=== PATIENT | female | born 1970 | race Caucasian/White ===

== ENCOUNTER 2020-08-18 07:48 | Outpatient (REF) | payer OTHER, SELFPAY ==
--- NOTE | ~2020-08-18 | MM_ITS ---
EXAMINATION: MM SCREENING DIGITAL BREAST TOMOSYNTHESIS, BILATERAL CLINICAL INFORMATION: Screening. Asymptomatic. The lifetime risk of breast cancer based on the Tyrer-Cuzick Model is 19%. COMPARISON: Mammography: 06/03/2019, 05/30/2018, 04/08/2017 TECHNIQUE: Digital mammography is performed in craniocaudal and mediolateral oblique views along with computer-aided detection (CAD). Digital breast tomosynthesis is performed in implant-displaced craniocaudal and implant-displaced mediolateral oblique views along with computer-aided detection (CAD). Synthesized 2D images are generated from the tomosynthesis. FINDINGS: There are scattered areas of fibroglandular density (ACR BI-RADS breast composition Category b). There are no significant masses, abnormal calcifications, or other abnormalities. There are bilateral implants. The implant contours are smooth. Again, there is biopsy clip marker posterior inferior 6:30 o'clock left breast. MM/MM tomosynthesis screen imp BI IMPRESSION: No significant changes from prior studies. ASSESSMENT: BI-RADS 2: Benign RECOMMENDATION: Routine annual mammography screening. This patient's information was entered into a reminder system with a target due date for their next mammogram.
== END 2020-08-18 07:49 | disposition home or self-care (01) ==
LOC: HO.MAMMO 07:48
PROVIDERS: PCP Internal Medicine; Visit Provider Internal Medicine
DX: Z12.31 Encounter for screening mammogram for malignant neoplasm of breast (principal)
CPT/HCPCS: 77063; 77067

== ENCOUNTER 2021-06-08 08:57 | Outpatient (REF) | payer OTHER, SELFPAY ==
[2021-06-08 12:13] LABS: Alanine Aminotransferase 19 U/L (0-31); Anion Gap 11 (12-20); Aspartate Amino Transferase 18 U/L (5-31); Blood Urea Nitrogen 15 mg/dL (9-16); Calcium 9.6 mg/dL (8.4-10.2); Carbon Dioxide 27 mmol/L (22-29); Chloride 108 mmol/L (96-108); Cholesterol 187 mg/dL; Estimated Glomerular Filt Rate > 60; Glucose Fasting 109 mg/dL (60-99); HDL Cholesterol 58 mg/dL; LDL Cholesterol Calculated 114 mg/dl; Potassium 4.5 mmol/L (3.3-5.1); Sodium 141 mmol/L (135-145); Triglycerides 77 mg/dL
[2021-06-08 12:22] LABS: Vitamin D 25-OH Total 17.4 ng/mL (>30)
[2021-06-14 19:42] LABS: HPV mRNA E6/E7 rflx Not Detected (Not Detected)
== END 2021-06-08 08:58 | disposition home or self-care (01) ==
LOC: HO.HMGCLDS 08:57
PROVIDERS: PCP Internal Medicine; Visit Provider Internal Medicine
DX: Z00.00 Encounter for general adult medical examination without abnormal findings (principal); Z12.4 Encounter for screening for malignant neoplasm of cervix; Z11.51 Encounter for screening for human papillomavirus (HPV)
CPT/HCPCS: 36415; 80048; 80061; 82306; 84450; 84460; 87624; 88142

== ENCOUNTER 2021-08-24 07:58 | Outpatient (REF) | payer OTHER, SELFPAY ==
--- NOTE | ~2021-08-24 | MM_ITS ---
EXAMINATION: MM SCREENING DIGITAL BREAST TOMOSYNTHESIS, BILATERAL CLINICAL INFORMATION: Screening. Asymptomatic. The lifetime risk of breast cancer based on the Tyrer-Cuzick Model is 10%. COMPARISON: Mammography: 08/18/2020, 06/03/2019, 05/30/2018 TECHNIQUE: Digital mammography is performed in craniocaudal and mediolateral oblique views along with computer-aided detection (CAD). Digital breast tomosynthesis is performed in implant-displaced craniocaudal and implant-displaced mediolateral oblique views along with computer-aided detection (CAD). Synthesized 2D images are generated from the tomosynthesis. FINDINGS: There are scattered areas of fibroglandular density (ACR BI-RADS breast composition Category b). There are no significant masses, abnormal calcifications, or other abnormalities. The implant contours are smooth and similar to prior studies. Parenchymal pattern is similar to prior exams and there is no developing density or architectural abnormality. Biopsy clip marker again present on left central lower breast. No significant changes from prior studies. MM/MM tomosynthesis screen imp BI IMPRESSION: No mammographic evidence of malignancy. ASSESSMENT: BI-RADS 1: Negative RECOMMENDATION: Routine annual mammography screening. This patient's information was entered into a reminder system with a target due date for their next mammogram.
== END 2021-08-24 07:59 | disposition home or self-care (01) ==
LOC: HO.MAMMO 07:58
PROVIDERS: Visit Provider Internal Medicine
DX: Z12.31 Encounter for screening mammogram for malignant neoplasm of breast (principal)
CPT/HCPCS: 77063; 77067

== ENCOUNTER 2022-08-29 07:39 | Outpatient (REF) | payer OTHER, SELFPAY ==
--- NOTE | ~2022-08-29 | MM_ITS ---
EXAMINATION: MM SCREENING DIGITAL BREAST TOMOSYNTHESIS, BILATERAL CLINICAL INFORMATION: Screening. Asymptomatic. The lifetime risk of breast cancer based on the Tyrer-Cuzick Model is 10%. COMPARISON: Mammography: 08/24/2021, 08/18/2020, 06/03/2019 TECHNIQUE: Digital mammography is performed in craniocaudal and mediolateral oblique views along with computer-aided detection (CAD). Digital breast tomosynthesis is performed in implant-displaced craniocaudal and implant-displaced mediolateral oblique views along with computer-aided detection (CAD). Synthesized 2D images are generated from the tomosynthesis. FINDINGS: There are scattered areas of fibroglandular density (ACR BI-RADS breast composition Category b). The implant contours are smooth and similar to prior studies. The parenchymal pattern is similar to prior exams and there is no significant mass, developing density, or architectural abnormality. No abnormal calcifications. Biopsy clip marker again noted on left central 8:00 position. The axilla are unremarkable. No significant changes. MM/MM tomosynthesis screen imp BI IMPRESSION: No mammographic evidence of malignancy. ASSESSMENT: BI-RADS 1: Negative RECOMMENDATION: Routine annual mammography screening. This patient's information was entered into a reminder system with a target due date for their next mammogram.
== END 2022-08-29 07:40 | disposition home or self-care (01) ==
LOC: HO.MAMMO 07:39
PROVIDERS: Visit Provider Internal Medicine
DX: Z12.31 Encounter for screening mammogram for malignant neoplasm of breast (principal)
CPT/HCPCS: 77063; 77067

== ENCOUNTER 2022-11-05 09:12 | Outpatient (REF) | payer OTHER, SELFPAY ==
[2022-11-05 12:22] LABS: Alanine Aminotransferase 16 U/L (0-31); Anion Gap 12 (12-20); Aspartate Amino Transferase 16 U/L (5-31); Blood Urea Nitrogen 15 mg/dL (9-16); Calcium 9.2 mg/dL (8.4-10.2); Carbon Dioxide 26 mmol/L (22-29); Chloride 110 mmol/L (96-108); Cholesterol 179 mg/dL; Estimated Glomerular Filt Rate > 60; Glucose Fasting 99 mg/dL (60-99); HDL Cholesterol 51 mg/dL; LDL Cholesterol Calculated 110 mg/dl; Potassium 4.8 mmol/L (3.3-5.1); Sodium 143 mmol/L (135-145); Triglycerides 92 mg/dL
[2022-11-05 12:38] LABS: Vitamin D 25-OH Total 46.9 ng/mL (>30)
== END 2022-11-05 09:13 | disposition home or self-care (01) ==
LOC: HO.HMGCLDS 09:12
PROVIDERS: PCP Internal Medicine; Visit Provider Internal Medicine
DX: E66.9 Obesity, unspecified (principal); E55.9 Vitamin D deficiency, unspecified
CPT/HCPCS: 36415; 80048; 80061; 82306; 84450; 84460

== ENCOUNTER 2023-04-08 12:13 | Outpatient (AMB) | payer OTHER, SELFPAY ==
--- NOTE | 2023-04-08 12:44 | MHC.PC.OV ---
Vital Signs 04/08/23 12:45 Height 5 ft Weight 188 lb 4 oz BMI 36.8 BP 135/95 H Blood Pressure Location Lt brachial Position Sitting Pulse 72 Pulse Source Pulse Oximeter Pulse Oximetry (%) 94 Oxygen Delivery Method Room Air Intake Visit Reasons: med review Intake Note: pt is here to follow up on her wegovy Allergies Sulfa (Sulfonamide Antibiotics) Allergy (Unknown, Unverified 07/25/23 10:19) hives Medication List - Last Reconciled 04/08/23 by Alee Lackey MD semaglutide (weight loss) 0.5 mg (0.5 mL) subcut QWEEK 1 month Tobacco use date assessed: 04/08/23 Dental Screening Dental Screen Date: 04/08/23 Did you have a dental visit in the last 12 months?: Yes Did you have a dental problem in the last 6 months where you did not have access to dental care?: No Was dental information given to patient?: Patient has dentist HPI med review HPI Details 52-year-old lady with obesity, here today for follow-up regarding weight loss after starting Wegovy 0.25 mg injected weekly, which was started approximately 2 months ago. Patient however had an interruption her dose, as she was unable to get the medication filled from local pharmacies. She eventually was able to get a prescription filled from the [facility]. She has been compliant with following a healthy diet, and has been exercising, has lost approximately 7 lb in 3 months. Patient states medication make it is her not want to eat, has been forcing herself to eat regular meals. Has had brief episodes of abdominal cramping after injectng the medicine which resolved spontaneously after a day. [facility] Medical History (Updated 07/25/23 @ 10:33 by Alee Lackey MD) Impaired fasting glucose Vitamin D deficiency Saline breast implant in situ Anxiety and depression Basal cell carcinoma (BCC) in situ of skin Obesity (BMI 35.0-39.9 without comorbidity) Surgical History History of tonsillectomy History of tubal ligation History of mastopexy Family History Unknown No problems noted. Other Adopted Asperger syndrome Social History Housing: Condominium Patient Tobacco Use Status: Never used Tobacco e-Cigarette/Vaping Use: Never Used Second Hand Smoke Exposure: No service: No Current occupational status: employed Cognitive needs: No Hearing needs: No Vision needs: Yes Questionnaire Thrive Questionnaire Date Thrive assessed: 11/07/22 ADILSON-7 AMB Questionnaire ADILSON-7 Date ADILSON - 7 assessed: 12/04/22 Source: Developed by Drs. Gabe Mcclelland, Adriane Cloud, Lucius Lam and colleagues, with an educational hayder from [employer]. Review of Systems Const Reports no additional complaints Eyes Details: Up-to-date with her eye exam, sees [facility] Denies change in vision ENT Reports no additional complaints and Reports Normal hearing present Card Reports no additional complaints Resp Reports no additional complaints GI Reports no additional complaints Reports no additional complaints Musc Reports as per HPI Neuro Reports no additional complaints, Reports Normal hearing present and Denies Sensory deficit (Neuro) Psych Reports no additional complaints Endo Reports no additional complaints Magdi/Lymph Reports no additional complaints Aller/Immun Reports no additional complaints Physical exam (Primary Care) Vital Signs: Last Vital Signs Pulse 72 04/08/23 12:45 BP 135/95 H 04/08/23 12:45 Pulse Ox 94 04/08/23 12:45 Oxygen Delivery Method Room Air 04/08/23 12:45 BMI result Body Mass Index 36.8 Tobacco/Smoking Status: Tobacco use Status Tobacco use date assessed 04/08/23 04/08/23 12:49 Patient Tobacco Use Status Never used Tobacco 04/08/23 12:49 e-Cigarette/Vaping Use Never Used 04/08/23 12:49 Thrive Assessment: Date of Thrive Assessment Date Thrive assessed 11/07/22 04/08/23 12:49 Const General: no acute distress and alert Nutritional Appearance: obese Orientation/consciousness: patient oriented x3 HENMT Head: Yes normocephalic General nose exam: Normal external nose present Face and sinus: Yes face symmetric Mouth: Normal oral and palatal mucosa present, oropharynx normal and moist mucous membranes Neck Neck: Yes full ROM and Yes no lymphadenopathy Thyroid: Thyroid normal Resp Effort & Inspection: normal respiratory effort and able to speak in complete sentences Auscultation: clear to auscultation bilaterally Cardio Jugular venous distension: no JVD Rate: regular rate Rhythm: regular rhythm Heart sounds: S1 normal heart sound present and S2 normal heart sound present GI Inspection: Yes normal to inspection Palpation (GI): Soft to palpation Auscultation: normal bowel sounds Neuro General: patient oriented x3, gait normal, moves all extremities, no focal motor deficits and CN's II-XI intact bilaterally Cranial nerves: Yes Normal hearing present Cognition (Neuro): normal cognition Gait exam (Neuro): Normal gait present Sensory Exam: No Sensory deficit (Neuro) Office Procedures Flu Questionnaire Does the patient have a severe egg allergy?: No Does the patient have severe life threatening allergies?: No Does the patient have a fever or illness today?: No Has the patient ever had Guillain-Baker Syndrome?: No Has the patient ever had any past reaction to a flu shot?: No Immunizations flu vacc [id number] 6mos up(PF) 60 mcg(15 mcgx4)/0.5 mL IM syringe Performing Provider: Alee Lackey MD [facility] Administered by: Larissa Joyner CMA on 04/08/23 13:34 Dose Route Admin Location Dispensed Lot Number Expiration Date NDC Procedure Manager 0.5 mL IM Right Deltoid 0.5 mL [id number] 12/15/23 [id number] [employer] VIS Given Date VIS Provided VIS Publication Date 04/08/23 Single Vaccine 21 Eligibility Eligibility Date Funding Source Not [facility] Eligible 04/08/23 Private Assessment and Plan Assessment & Plan (1) Obesity (BMI 35.0-39.9 without comorbidity): Code(s): E66.9 - Obesity, unspecified Plan: Continue with adhering to healthy eating habits and regular exercise, increased Wegovy dose to 0.5 mg , to be injected weekly, will see her back for follow-up in 6 weeks (2) Needs flu shot: Code(s): Z23 - Encounter for immunization Plan: Flu vaccine given today Orders: Orders Glucose Fasting 05/17/23 E66.9 - Obesity, unspecified Influenza [id number] Immunization 04/08/23 Z23 - Encounter for immunization Liver Panel 05/17/23 E66.9 - Obesity, unspecified Medications: Changed From Wegovy administer weeks 1 through 4 of therapy 0.25 mg (0.5 mL) subcut QWEEK 2 mL 0RF NS E66.9 - Obesity, unspecified To semaglutide (weight loss) administer weeks 1 through 4 of therapy 0.5 mg (0.5 mL) subcut QWEEK 2 mL 1RF 1 month E66.9 - Obesity, unspecified Coding Level of Care Code Est Pt Level 3 (56223) Diagnoses Obesity (BMI 35.0-39.9 without comorbidity) E66.9 Needs flu shot Z23
[2023-04-08 12:45] VITALS: BP 135/95; PULSE 72; O2SAT 94; BMI 36.8
== END 2023-04-08 14:09 | disposition home or self-care (01) ==
PROVIDERS: PCP Internal Medicine; Visit Provider Internal Medicine
DX: E66.9 Obesity, unspecified (principal); Z23 Encounter for immunization
CPT/HCPCS: 90471; 90686; 99213; 99499

== ENCOUNTER 2023-05-20 07:33 | Outpatient (REF) | payer OTHER, SELFPAY ==
[2023-05-20 12:12] LABS: Alanine Aminotransferase 18 U/L (0-31); Alkaline Phosphatase 90 U/L (39-117); Aspartate Amino Transferase 18 U/L (5-31); Bilirubin Direct 0.2 mg/dL (0.0-0.5); Bilirubin Total 0.5 mg/dL (0.0-1.0); Glucose Fasting 100 mg/dL (60-99); Total Protein 6.8 g/dL (6.5-8.0)
== END 2023-05-20 07:34 | disposition home or self-care (01) ==
LOC: HO.HMGCLDS 07:33
PROVIDERS: PCP Internal Medicine; Visit Provider Internal Medicine
DX: E66.9 Obesity, unspecified (principal)
CPT/HCPCS: 36415; 80076; 82947

== ENCOUNTER 2023-05-23 08:50 | Outpatient (AMB) | payer OTHER, SELFPAY ==
[2023-05-23 08:57] VITALS: BP 130/88; PULSE 69; O2SAT 97; BMI 36.0
--- NOTE | 2023-05-23 08:57 | MHC.PC.OV ---
Vital Signs 05/23/23 08:57 Height 5 ft Weight 184 lb 2 oz BMI 36.0 BP 130/88 Blood Pressure Location Lt brachial Position Sitting Pulse 69 Pulse Source Pulse Oximeter Pulse Oximetry (%) 97 Oxygen Delivery Method Room Air Intake Visit Reasons: regarding weight after increasing dose of wegovy Intake Note: Pt is here to have her weight checked after increasing her dose on wegovy Allergies Sulfa (Sulfonamide Antibiotics) Allergy (Unknown, Unverified 05/23/23 09:19) hives Medication List - Last Reconciled 05/23/23 by Alee Lackey MD semaglutide (weight loss) 0.5 mg (0.5 mL) subcut QWEEK 1 month Tobacco use date assessed: 05/23/23 Dental Screening Dental Screen Date: 05/23/23 Did you have a dental visit in the last 12 months?: Yes Did you have a dental problem in the last 6 months where you did not have access to dental care?: No Was dental information given to patient?: Patient has dentist HPI regarding weight after increasing dose of wegovy HPI Details 53-year-old lady with obesity, here today for follow-up after increasing her dose of Wegovy from 0.25 to 0.5 mg injected weekly. She initially started with a weight of 195 lb in February 2023, and then went down to 188 lb after month on the 0.25 mg dose per. She has lost only for lb since increasing the dose to 0.5 mg, but has not had any adverse effects from the medication and has been combining it with adhering to a healthier diet and getting regular exercise. Latest fasting labs done showed fasting glucose at 100 mg/dL and liver profile is within normal limits. [facility] Medical History Vitamin D deficiency Saline breast implant in situ Anxiety and depression Basal cell carcinoma (BCC) in situ of skin Obesity (BMI 35.0-39.9 without comorbidity) Surgical History History of tonsillectomy History of tubal ligation History of mastopexy Family History Unknown No problems noted. Other Adopted Asperger syndrome Social History Housing: Condominium Patient Tobacco Use Status: Never used Tobacco e-Cigarette/Vaping Use: Never Used Second Hand Smoke Exposure: No service: No Current occupational status: employed Cognitive needs: No Hearing needs: No Vision needs: Yes Questionnaire PHQ-9 Over the last 2 weeks, how often have you been bothered by any of the following problems? 1. Little interest or pleasure in doing things: not at all 2. Feeling down, depressed, or hopeless: not at all 3. Trouble falling or staying asleep, or sleeping too much: not at all 4. Feeling tired or having little energy: not at all 5. Poor appetite or overeating: not at all 6. Feeling bad about yourself - or that you are a failure or have let yourself or your family down: not at all 7. Trouble concentrating on things, such as reading the newspaper or watching television: not at all 8. Moving or speaking so slowly that other people could have noticed. Or the opposite - being so fidgety or restless that you have been moving around a lot more than usual: not at all 9. Thoughts that you would be better off or of hurting yourself in some way: not at all Total score: 0 Depression Screening Interpretation: Negative Depression Screening Done: Yes 93705 - PHQ-9 Billing: Yes Source: Developed by Drs. Gabe Mcclelland, Adriane Cloud, Lucius Lam and colleagues, with an educational hayder from [employer]. Thrive Questionnaire Date Thrive assessed: 05/23/23 I am a: Patient What is your living situation today?: I have a steady place to live Within the past 12 months, did the food you bought not last and you didn't have the money to get more?: Never true Within the past 12 months, did you worry whether your food would run out before you got money to buy more?: Never true Do you have trouble paying for medicines?: No Do you have trouble getting transportation to medical appointments?: No Do you have trouble paying your heating and electricity bill?: No Do you have trouble taking care of your child, family member or friend?: No Do you have trouble with day-to-day activities such as bathing, preparing meals, shopping, managing finances, etc.?: No Are you currently unemployed and looking for a job?: No Are you interested in more education?: No AUDIT C Alcohol Use Questionnaire (AUDIT-C) 1. How often do you have a drink containing alcohol?: Monthly or less 2. How many drinks containing alcohol do you have on a typical day when you are drinking?: 1 or 2 3. How often do you have six or more drinks on one occasion?: Never Total Score: 1 ADILSON-7 AMB Questionnaire ADILSON-7 Date ADILSON - 7 assessed: 05/23/23 Feeling nervous, anxious, or on edge: 0 = Not at all Not being able to stop or control worryin = Not at all Worrying too much about different things: 0 = Not at all Trouble relaxin = Not at all Being so restless that it is hard to sit still: 0 = Not at all Becoming easily annoyed or irritable: 0 = Not at all Feeling afraid as if something awful might happen: 0 = Not at all Total ADILSON-7 score (0-4 normal; 5-9 mild; 10-14 moderate; 15-21 severe): 0 Source: Developed by Drs. Gabe Mcclelland, Adriane Cloud, Lucius Lam and colleagues, with an educational hayder from [employer]. ADILSON-7 Assessment Billing ADILSON-7 Assessment Tool: ADILSON-7 Assessment 32389 Review of Systems Const Reports no additional complaints Eyes Details: Up-to-date with her eye exam, sees [facility] Denies change in vision ENT Reports no additional complaints and Reports Normal hearing present Card Reports no additional complaints Resp Reports no additional complaints GI Reports no additional complaints Reports no additional complaints Neuro Reports no additional complaints, Reports Normal hearing present and Denies Sensory deficit (Neuro) Psych Reports no additional complaints Endo Reports no additional complaints Physical exam (Primary Care) Vital Signs: Last Vital Signs Pulse 69 05/23/23 08:57 BP 130/88 05/23/23 08:57 Pulse Ox 97 05/23/23 08:57 Oxygen Delivery Method Room Air 05/23/23 08:57 BMI result Body Mass Index 36.0 Tobacco/Smoking Status: Tobacco use Status Tobacco use date assessed 05/23/23 05/23/23 09:04 Patient Tobacco Use Status Never used Tobacco 05/23/23 08:58 e-Cigarette/Vaping Use Never Used 05/23/23 08:58 PHQ-9: PHQ-9 Score PHQ-9: Total score 0 05/23/23 09:14 Depression Screening Interpretation: Negative Thrive Assessment: Date of Thrive Assessment Date Thrive assessed 05/23/23 05/23/23 09:14 Const General: no acute distress and alert Nutritional Appearance: obese Orientation/consciousness: patient oriented x3 Neck Neck: Yes full ROM and Yes no lymphadenopathy Thyroid: Thyroid normal Resp Effort & Inspection: normal respiratory effort and able to speak in complete sentences Auscultation: clear to auscultation bilaterally Cardio Jugular venous distension: no JVD Rate: regular rate Rhythm: regular rhythm Heart sounds: S1 normal heart sound present and S2 normal heart sound present GI Inspection: Yes normal to inspection Palpation (GI): Soft to palpation Auscultation: normal bowel sounds Neuro General: patient oriented x3, gait normal, moves all extremities, no focal motor deficits and CN's II-XI intact bilaterally Cranial nerves: Yes Normal hearing present Cognition (Neuro): normal cognition Gait exam (Neuro): Normal gait present Sensory Exam: No Sensory deficit (Neuro) Results Reviewed Results Reviewed: NTERED: 05/20/[address]: ORDERED: Liver Panel, Glu Fasting Test Result Flag Reference Site FBS 100 H 60-99 mg/dL A fasting glucose from 100-125 mg/dl is considered impaired (pre-diabetes). Total Bili 0.5 0.0-1.0 mg/dL Direct Bili 0.2 0.0-0.5 mg/dL AST (GOT) 18 5-31 U/L ALT (GPT) 18 0-31 U/L Protein, Total 6.8 6.5-8.0 g/dL Alb 4.0 3.5-5.0 g/dL Alk Phos 90 39-117 U/L Assessment and Plan Assessment & Plan (1) Obesity (BMI 35.0-39.9 without comorbidity): Code(s): E66.9 - Obesity, unspecified Plan: Continued on Wegovy 1 5 mg injected weekly is in, 1 month prescription with 1 refill sent. Patient tolerating medication well, advised to stop taking medication if she develops severe abdominal pain , nausea, vomiting, severe diarrhea. Will see her back for follow-up in 2 months . In the meantime, continue adhering to healthy diet and getting regular exercise in addition to taking her medication Medications: Refilled semaglutide (weight loss) administer weeks 1 through 4 of therapy 0.5 mg (0.5 mL) subcut QWEEK 1 month 2 mL 1RF E66.9 - Obesity, unspecified Coding Level of Care Code Est Pt Level 3 (58833) Diagnoses Obesity (BMI 35.0-39.9 without comorbidity) E66.9 Additional Codes ADILSON-7 Assessment Billing - ADILSON-7 Assessment Tool: ADILSON-7 Assessment 67830 ([id number])
== END 2023-05-23 10:16 | disposition home or self-care (01) ==
PROVIDERS: PCP Internal Medicine; Visit Provider Internal Medicine
DX: E66.9 Obesity, unspecified (principal); Z68.36 Body mass index [BMI] 36.0-36.9, adult
CPT/HCPCS: 99213

== ENCOUNTER 2023-07-25 09:31 | Outpatient (AMB) | payer OTHER, SELFPAY ==
[2023-07-25 09:41] VITALS: BP 132/84; PULSE 85; O2SAT 98; BMI 35.8
--- NOTE | 2023-07-25 09:41 | MHC.PC.OV ---
Vital Signs 07/25/23 09:41 Height 5 ft Weight 183 lb 6 oz BMI 35.8 BP 132/84 Blood Pressure Location Rt brachial Position Sitting Pulse 85 Pulse Source Pulse Oximeter Pulse Oximetry (%) 98 Oxygen Delivery Method Room Air Intake Visit Reasons: follow up Intake Note: Pt is here today for her wgt f/u Allergies Sulfa (Sulfonamide Antibiotics) Allergy (Unknown, Unverified 07/25/23 10:19) hives Medication List - Last Reconciled 07/25/23 by Alee Lackey MD semaglutide (weight loss) 0.5 mg (0.5 mL) subcut QWEEK 1 month Tobacco use date assessed: 07/25/23 Dental Screening Dental Screen Date: 07/25/23 Did you have a dental visit in the last 12 months?: Yes Did you have a dental problem in the last 6 months where you did not have access to dental care?: No Was dental information given to patient?: Patient has dentist HPI follow up HPI Details 53-year-old lady here for follow-up. Currently on Wegovy 0.5 mg weekly, tolerating medication well, initially lost weight but now has plateaued. [facility] Medical History (Updated 07/25/23 @ 10:33 by Alee Lackey MD) Impaired fasting glucose Vitamin D deficiency Saline breast implant in situ Anxiety and depression Basal cell carcinoma (BCC) in situ of skin Obesity (BMI 35.0-39.9 without comorbidity) Surgical History History of tonsillectomy History of tubal ligation History of mastopexy Family History Unknown No problems noted. Other Adopted Asperger syndrome Social History Housing: Condominium Patient Tobacco Use Status: Never used Tobacco e-Cigarette/Vaping Use: Never Used Second Hand Smoke Exposure: No service: No Current occupational status: employed Cognitive needs: No Hearing needs: No Vision needs: Yes Questionnaire PHQ-9 Over the last 2 weeks, how often have you been bothered by any of the following problems? 1. Little interest or pleasure in doing things: not at all 2. Feeling down, depressed, or hopeless: not at all 3. Trouble falling or staying asleep, or sleeping too much: not at all 4. Feeling tired or having little energy: not at all 5. Poor appetite or overeating: not at all 6. Feeling bad about yourself - or that you are a failure or have let yourself or your family down: not at all 7. Trouble concentrating on things, such as reading the newspaper or watching television: not at all 8. Moving or speaking so slowly that other people could have noticed. Or the opposite - being so fidgety or restless that you have been moving around a lot more than usual: not at all 9. Thoughts that you would be better off or of hurting yourself in some way: not at all Total score: 0 Depression Screening Interpretation: Negative Depression Screening Done: Yes 34867 - PHQ-9 Billing: Yes Source: Developed by Drs. Gabe Mcclelland, Adriane Cloud, Lucius Lam and colleagues, with an educational hayder from [employer]. Thrive Questionnaire Date Thrive assessed: 07/25/23 I am a: Patient What is your living situation today?: I have a steady place to live Within the past 12 months, did the food you bought not last and you didn't have the money to get more?: Never true Within the past 12 months, did you worry whether your food would run out before you got money to buy more?: Never true Do you have trouble paying for medicines?: No Do you have trouble getting transportation to medical appointments?: No Do you have trouble paying your heating and electricity bill?: No Do you have trouble taking care of your child, family member or friend?: No Do you have trouble with day-to-day activities such as bathing, preparing meals, shopping, managing finances, etc.?: No Are you currently unemployed and looking for a job?: No Are you interested in more education?: No THRIVE Score: 0 AUDIT C Alcohol Use Questionnaire (AUDIT-C) 1. How often do you have a drink containing alcohol?: Monthly or less 2. How many drinks containing alcohol do you have on a typical day when you are drinking?: 1 or 2 3. How often do you have six or more drinks on one occasion?: Never Total Score: 1 Score Reviewed/Action Taken: Yes ADILSON-7 AMB Questionnaire ADILSON-7 Date ADILSON - 7 assessed: 07/25/23 Feeling nervous, anxious, or on edge: 0 = Not at all Not being able to stop or control worryin = Not at all Worrying too much about different things: 0 = Not at all Trouble relaxin = Not at all Being so restless that it is hard to sit still: 0 = Not at all Becoming easily annoyed or irritable: 0 = Not at all Feeling afraid as if something awful might happen: 0 = Not at all Total ADILSON-7 score (0-4 normal; 5-9 mild; 10-14 moderate; 15-21 severe): 0 Source: Developed by Drs. Gabe Mcclelland, Adriane Cloud, Lucius Lam and colleagues, with an educational hayder from [employer]. ADILSON-7 Assessment Billing ADILSON-7 Assessment Tool: ADILSON-7 Assessment 15350 Review of Systems Const Reports no additional complaints Eyes Denies change in vision ENT Reports no additional complaints and Reports Normal hearing present Card Reports no additional complaints Resp Reports no additional complaints GI Reports no additional complaints Reports no additional complaints Neuro Reports no additional complaints, Reports Normal hearing present and Denies Sensory deficit (Neuro) Psych Reports no additional complaints Endo Reports no additional complaints Physical exam (Primary Care) Vital Signs: Last Vital Signs Pulse 85 07/25/23 09:41 BP 132/84 07/25/23 09:41 Pulse Ox 98 07/25/23 09:41 Oxygen Delivery Method Room Air 07/25/23 09:41 BMI result Body Mass Index 35.8 Tobacco/Smoking Status: Tobacco use Status Tobacco use date assessed 07/25/23 07/25/23 09:42 Patient Tobacco Use Status Never used Tobacco 07/25/23 09:42 e-Cigarette/Vaping Use Never Used 07/25/23 09:42 PHQ-9: PHQ-9 Score PHQ-9: Total score 0 07/25/23 10:33 Depression Screening Interpretation: Negative Thrive Assessment: Date of Thrive Assessment Date Thrive assessed 07/25/23 07/25/23 09:45 Const General: no acute distress and alert Nutritional Appearance: obese Orientation/consciousness: patient oriented x3 Neck Neck: Yes full ROM and Yes no lymphadenopathy Thyroid: Thyroid normal Resp Effort & Inspection: normal respiratory effort and able to speak in complete sentences Auscultation: clear to auscultation bilaterally Cardio Jugular venous distension: no JVD Rate: regular rate Rhythm: regular rhythm Heart sounds: S1 normal heart sound present and S2 normal heart sound present GI Inspection: Yes normal to inspection Palpation (GI): Soft to palpation Auscultation: normal bowel sounds Neuro General: patient oriented x3, gait normal, moves all extremities, no focal motor deficits and CN's II-XI intact bilaterally Cranial nerves: Yes Normal hearing present Cognition (Neuro): normal cognition Gait exam (Neuro): Normal gait present Sensory Exam: No Sensory deficit (Neuro) Results Reviewed Results Reviewed: chantel: Nikos LoganSheri Age/Sex: 52/F : 1970 Unit#: [id number] Attend Dr: Alee Lackey MD Re05/20/23 Status: DEP REF Location: [facility] Disch: SPEC : [id number] PABLO: 05/20/23 STATUS: COMP REQ : [id number] RECD: 05/20/[address]: Alee Lackey MD COMP: 05/20/23 ENTERED: 05/20/[address] [facility] DR: ORDERED: Liver Panel, Glu Fasting Test Result Flag Reference FBS 100 H 60-99 mg/dL A fasting glucose from 100-125 mg/dl is considered impaired (pre-diabetes). Total Bili 0.5 0.0-1.0 mg/dL Direct Bili 0.2 0.0-0.5 mg/dL AST (GOT) 18 5-31 U/L ALT (GPT) 18 0-31 U/L Protein, Total 6.8 6.5-8.0 g/dL Alb 4.0 3.5-5.0 g/dL Alk Phos 90 39-117 U/L Assessment and Plan Assessment & Plan (1) Obesity (BMI 35.0-39.9 without comorbidity): Code(s): E66.9 - Obesity, unspecified Plan: Will increase dose of Wegovy to 1 mg given subcutaneously once weekly, stressed importance of adhering to a healthy diet and getting regular exercise in addition to taking medication. (2) Impaired fasting glucose: Code(s): R73.01 - Impaired fasting glucose Plan: Your fasting blood sugars elevated above 100 mg/dL. Impaired glucose metabolism O2 at risk for developing diabetes mellitus type 2, as well as heart attack and stroke later on. Lifestyle changes at just weight loss, healthy eating habits, and regular exercise are important, and can prevent the progression to diabetes Orders: Orders Comprehensive Sixes. Panel Fast 10/16/23 E66.9 - Obesity, unspecified, R73.01 - Impaired fasting glucose, Z13.220 - Encounter for screening for lipoid disorders Lipid Panel 10/16/23 E66.9 - Obesity, unspecified, R73.01 - Impaired fasting glucose, Z13.220 - Encounter for screening for lipoid disorders Vitamin D 25-OH Total 10/16/23 E66.9 - Obesity, unspecified, R73.01 - Impaired fasting glucose, Z13.220 - Encounter for screening for lipoid disorders Hemoglobin A1c 10/16/23 E66.9 - Obesity, unspecified, R73.01 - Impaired fasting glucose, Z13.220 - Encounter for screening for lipoid disorders Medications: Changed From semaglutide (weight loss) administer weeks 1 through 4 of therapy 0.5 mg (0.5 mL) subcut QWEEK 1 month 2 mL 1RF E66.9 - Obesity, unspecified To semaglutide (weight loss) administer weeks 1 through 4 of therapy 1 mg (0.5 mL) subcut QWEEK 1 month 2.5 mL 3RF E66.9 - Obesity, unspecified Coding Level of Care Code Est Pt Level 3 (65153) Diagnoses Obesity (BMI 35.0-39.9 without comorbidity) E66.9 Impaired fasting glucose R73.01 Additional Codes ADILSON-7 Assessment Billing - ADILSON-7 Assessment Tool: ADILSON-7 Assessment 70745 ([id number])
== END 2023-07-25 10:41 | disposition home or self-care (01) ==
PROVIDERS: PCP Internal Medicine; Visit Provider Internal Medicine
DX: R73.01 Impaired fasting glucose (principal); E66.9 Obesity, unspecified; Z68.35 Body mass index [BMI] 35.0-35.9, adult
CPT/HCPCS: 99213

== ENCOUNTER → 2023-09-06 07:45 | Outpatient (BNV) | payer OTHER, SELFPAY | PROVIDERS: PCP Internal Medicine; Visit Provider Radiology Diagnostic Radiology | DX: Z12.31 Encounter for screening mammogram for malignant neoplasm of breast (principal) | CPT/HCPCS: 77063; 77067 ==

== ENCOUNTER 2023-09-06 07:46 | Outpatient (REF) | payer OTHER, SELFPAY ==
--- NOTE | ~2023-09-06 | MM_ITS ---
EXAMINATION: MM SCREENING DIGITAL BREAST TOMOSYNTHESIS, BILATERAL WITH BREAST IMPLANTS CLINICAL INFORMATION: Screening. Asymptomatic. COMPARISON: Mammography: This study is compared with prior mammograms dating back to 2019. TECHNIQUE: Digital mammography is performed in craniocaudal and mediolateral oblique views along with computer-aided detection (CAD). Digital breast tomosynthesis is performed in implant-displaced craniocaudal and implant-displaced mediolateral oblique views along with computer-aided detection (CAD). Synthesized 2D images are generated from the tomosynthesis. FINDINGS: There are scattered areas of fibroglandular density (ACR BI-RADS breast composition Category b). There are bilateral, retropectoral mammographically intact, saline breast implants. There are no significant masses, abnormal calcifications, or other abnormalities. There is a tissue marker in the inferior aspect of the left breast from prior benign percutaneous biopsy. MM/MM tomosynthesis screen imp BI IMPRESSION: There are no significant changes from prior study. ASSESSMENT: BI-RADS BI-RADS 2 - Benign Findings RECOMMENDATION: Routine annual mammography screening. 1 year F/U This patient's information was entered into a reminder system with a target due date for their next mammogram.
== END 2023-09-06 07:47 | disposition home or self-care (01) ==
LOC: HO.MAMMO 07:46
PROVIDERS: PCP Internal Medicine; Visit Provider Internal Medicine
DX: Z12.31 Encounter for screening mammogram for malignant neoplasm of breast (principal)
CPT/HCPCS: 77063; 77067

== ENCOUNTER 2023-11-09 07:43 | Outpatient (REF) | payer OTHER, SELFPAY ==
[2023-11-09 11:31] LABS: Estimated Average Glucose 105 mg/dL; Hemoglobin A1c % 5.3 % (<6.0)
[2023-11-09 12:01] LABS: Alanine Aminotransferase 15 U/L (0-31); Albumin Level 4.1 g/dL (3.5-5.0); Alkaline Phosphatase 87 U/L (39-117); Anion Gap 12 (12-20); Aspartate Amino Transferase 15 U/L (5-31); Bilirubin Total 0.5 mg/dL (0.0-1.0); Blood Urea Nitrogen 11 mg/dL (9-16); Calcium 9.2 mg/dL (8.4-10.2); Carbon Dioxide 25 mmol/L (22-29); Chloride 108 mmol/L (96-108); Cholesterol 171 mg/dL (<200); Estimated Glomerular Filt Rate > 60; Glucose Fasting 84 mg/dL (60-99); HDL Cholesterol 58 mg/dL (>40); LDL Cholesterol Calculated 100 mg/dL (<100); Potassium 4.3 mmol/L (3.3-5.1); Sodium 141 mmol/L (135-145); Total Protein 6.7 g/dL (6.5-8.0); Triglycerides 68 mg/dL (<150)
== END 2023-11-09 07:44 | disposition home or self-care (01) ==
LOC: HO.HMGCLDS 07:43
PROVIDERS: PCP Internal Medicine; Visit Provider Internal Medicine
DX: Z13.220 Encounter for screening for lipoid disorders (principal); E66.9 Obesity, unspecified; R73.01 Impaired fasting glucose
CPT/HCPCS: 36415; 80053; 80061; 82306; 83036

== ENCOUNTER 2023-11-12 08:29 | Outpatient (AMB) | payer OTHER, SELFPAY ==
[2023-11-12 08:31] VITALS: BP 118/80; PULSE 72; O2SAT 96; BMI 35.2
--- NOTE | 2023-11-12 08:31 | A.OFFPC_ITS ---
Vital Signs 11/12/23 08:31 Height 5 ft Weight 180 lb BMI 35.2 BP 118/80 Blood Pressure Location Lt brachial Position Sitting Pulse 72 Pulse Source Pulse Oximeter Pulse Oximetry (%) 96 Oxygen Delivery Method Room Air Intake Visit Reasons: Annual PE Intake Note: Pt is here today for her PE: last mammogram 09/06/23, papsmear 06/12/21, colonoscopy 03/27/19 Allergies Sulfa (Sulfonamide Antibiotics) Allergy (Unknown, Unverified 11/12/23 08:50) hives Medication List - Last Reconciled 11/12/23 by Alee Lackey MD Wegovy (semaglutide (weight loss)) 1.7 mg (0.75 mL) subcut QWEEK 30 days NS Tobacco use date assessed: 11/12/23 Dental Screening Dental Screen Date: 11/12/23 Did you have a dental visit in the last 12 months?: Yes Did you have a dental problem in the last 6 months where you did not have access to dental care?: No Was dental information given to patient?: Patient has dentist HPI Annual PE HPI Details 53-year-old lady with history of impaire d fasting glucose, obesity,st arted on Wegovy 0.25 mg once a week last 02/2023, here today for physical exam. She is up-to-date with her screening mammogram, had recent fasting labs done which showed normal fasting glucose, lipids, electrolytes and renal function but vitamin-D is on the low side. She is up-to-date with her screening colonoscopy due again in 2028, had Pap in 2020 which came back negative except for no endocervical cells seen. She states that she has lost weight since starting we go be, up to a low of 170 lb, but gained it back again after unable to get her prescription forwegovy filled . She also just came back from a holidays for 2 weeks and has gained some weight but not as much as her baseline. She also has been trying to follow recommended diet and has been exercising regularly, states that she did a lot a hiking while on holiday. [facility] Medical History (Updated 11/12/23 @ 09:21 by Alee Lackey MD) Vitamin D deficiency Impaired fasting glucose Saline breast implant in situ Anxiety and depression Basal cell carcinoma (BCC) in situ of skin Obesity (BMI 35.0-39.9 without comorbidity) Surgical History History of tonsillectomy History of tubal ligation History of mastopexy Family History Unknown No problems noted. Other Adopted Asperger syndrome Social History Housing: Condominium Patient Tobacco Use Status: Never used Tobacco e-Cigarette/Vaping Use: Never Used Second Hand Smoke Exposure: No service: No Current occupational status: employed Cognitive needs: No Hearing needs: No Vision needs: Yes Questionnaire PHQ-9 Over the last 2 weeks, how often have you been bothered by any of the following problems? Depression Screening Interpretation: Negative Depression Screening Done: Yes Source: Developed by Drs. Gabe Mcclelland, Lucius Sultana and colleagues, with an educational hayder from [employer]. Thrive Questionnaire Date Thrive assessed: 07/25/23 ADILSON-7 AMB Questionnaire ADILSON-7 Date ADILSON - 7 assessed: 07/25/23 Source: Developed by Drs. Gabe Mcclelland, Adriane Cloud, Lucius Lam and colleagues, with an educational hayder from [employer]. Review of Systems Const Reports no additional complaints Eyes Denies change in vision ENT Reports no additional complaints and Reports Normal hearing present Card Reports no additional complaints Resp Reports no additional complaints GI Reports no additional complaints Reports no additional complaints Musc Reports no additional complaints Skin/Breast Details: Currently sees [facility] for skin cancer screening recently had a basal cell cancer on her right forearm removed Denies breast swelling and Denies breast skin changes Neuro Reports no additional complaints, Reports Normal hearing present and Denies Sensory deficit (Neuro) Psych Reports no additional complaints Endo Reports no additional complaints Magdi/Lymph Reports no additional complaints Aller/Immun Reports no additional complaints Physical exam (Primary Care) Vital Signs: Last Vital Signs Pulse 72 11/12/23 08:31 BP 118/80 11/12/23 08:31 Pulse Ox 96 11/12/23 08:31 Oxygen Delivery Method Room Air 11/12/23 08:31 BMI result Body Mass Index 35.2 Tobacco/Smoking Status: Tobacco use Status Tobacco use date assessed 11/12/23 11/12/23 08:40 Patient Tobacco Use Status Never used Tobacco 11/12/23 08:32 e-Cigarette/Vaping Use Never Used 11/12/23 08:32 Depression Screening Interpretation: Negative Thrive Assessment: Date of Thrive Assessment Date Thrive assessed 07/25/23 11/12/23 08:32 Const General: no acute distress and alert Nutritional Appearance: obese Orientation/consciousness: patient oriented x3 HENMT Head: Yes normocephalic Ears: hearing grossly normal bilaterally, external ears normal, TM's normal bilaterally and EAC's normal Eyes General: appearance normal, both eyes and all related structures Neck Neck: Yes full ROM and Yes no lymphadenopathy Thyroid: Thyroid normal Chest Other: Positive bilateral breast implant Resp Effort & Inspection: normal respiratory effort and able to speak in complete sentences Auscultation: clear to auscultation bilaterally Cardio Jugular venous distension: no JVD Rate: regular rate Rhythm: regular rhythm Heart sounds: S1 normal heart sound present and S2 normal heart sound present GI Inspection: Yes normal to inspection Palpation (GI): Soft to palpation Auscultation: normal bowel sounds Other: Referral to OBGYN General: Yes no CVA tenderness and Yes deferred Back/Spine/Pelvis Back: no CVA tenderness and No back tenderness Skin General skin exam: no rashes or lesions noted Neuro General: patient oriented x3, gait normal, moves all extremities, no focal motor deficits and CN's II-XI intact bilaterally Cranial nerves: Yes Normal hearing present Cognition (Neuro): normal cognition Gait exam (Neuro): Normal gait present Sensory Exam: No Sensory deficit (Neuro) Extrem General: Yes normal to inspection, Yes full ROM, Yes no joint enlargement, Yes no clubbing, cyanosis or edema and Yes no calf tenderness Psych Appearance: grossly normal and well kempt Mental Status: mental status grossly normal Speech and movement: Normal speech and movement present Affect: normal affect Results Reviewed Results Reviewed: Laboratory Tests 11/09/23 07:46 Estimat Average Glucose 105 Hemoglobin A1c % 5.3 Name: Sheri Drake Age/Sex: 53/F : 1970 Unit#: [id number] Attend Dr: Alee Lackey MD Re11/09/23 Status: DEP REF Location: [facility] Disch: SPEC : [id number] PABLO: 11/09/23 STATUS: COMP REQ : [id number] RECD: 11/09/23-[address]: Alee Lackey MD COMP: 11/09/23-1206 ENTERED: 11/09/[address]: ORDERED: CMP Fast, Lipid Panel, Vitamin D 25-OH Test Result Flag Reference Sodium 141 135-145 mmol/L Potassium 4.3 3.3-5.1 mmol/L CL 108 96-108 mmol/L CO2 25 22-29 mmol/L Gap 12 12-20 BUN 11 9-16 mg/dL Creat 0.75 0.5-1.4 mg/dL EGFR > 60 NOTE: For -[place] individuals, multiply the result by 1.210. Chronic Kidney Disease: Estimated GFR < 60 mL/min/1.73m2 Severe Kidney Disease: Estimated GFR < 15 mL/min/1.73m2 FBS 84 60-99 mg/dL CA 9.2 8.4-10.2 mg/dL Total Bili 0.5 0.0-1.0 mg/dL AST (GOT) 15 5-31 U/L ALT (GPT) 15 0-31 U/L Protein, Total 6.7 6.5-8.0 g/dL Alb 4.1 3.5-5.0 g/dL Triglyceride 68 <150 mg/dL Desirable Triglyceride: less than 150 mg/dL Borderline High Triglyceride 150-199 mg/dL High Triglyceride: 200-499 mg/dL Very High Triglyceride: greater than or equal to 5OO mg/dL Cholesterol 171 <200 mg/dL Desirable Cholesterol: less than 200 mg/dL Borderline High Cholesterol: 200-239 mg/dL High Cholesterol: greater than 239 mg/dL LDL Calculated 100 H <100 mg/dL Desirable LDL: less than 100 mg/dL Near Optimal/Above Optimal LDL: 110-129 mg/dL Borderline High LDL: 130-159 mg/dL High LDL: 160-189 mg/dL Very High LDL: greater than or equal to 190 mg/dL HDL 58 >40 mg/dL Desirable HDL: greater than 40 mg/dL Note: This HDL assay may give artificially low results in patients with liver disease. Alk Phos 87 39-117 U/L Vit D 25-OH Tot 28.0 L >30 ng/mL Health Based Reference Values* < 20 ng/mL Deficient 20-30 ng/mL Insufficient > 30 ng/mL Sufficient Assessment and Plan Assessment & Plan (1) Annual visit for general adult medical examination with abnormal findings: Code(s): Z00. - Encounter for general adult medical examination with abnormal findings Plan: Reviewed recent fasting lab results with patient.. Recommended dental visit every 6 months and regular eye exams, at least every 2 years. Take adequate calcium in diet and vitamin-D 3 at 2000 IU per cap once a day, in addition to weight-bearing exercises to help maintain good muscle tone and weight control. Instructed to do self-breast exam, and continue yearly mammogram. Up-to-date vaccination. Screening colonoscopy up-to-date due again in 2028. (2) Screening for malignant neoplasm of cervix: Code(s): Z12.4 - Encounter for screening for malignant neoplasm of cervix Plan: Referred to OBGYN at [place] for her cervical cancer screening, last done showed no endocervical cells (3) Obesity (BMI 35.0-39.9 without comorbidity): Code(s): E66.9 - Obesity, unspecified Plan: Currently on we go be, with dose increased to 1.7 mg subcutaneously given once a week. Patient still has not yet started taking this new dose. Combined this with diet and exercise, will have her come back in 4 weeks after starting the new dose for a weight check (4) Vitamin D deficiency: Code(s): E55.9 - Vitamin D deficiency, unspecified Plan: Start taking vitamin-D [id number] 2000 units daily (5) Basal cell carcinoma (BCC) in situ of skin: Comment: s/p excision right forearm , sees [facility] derm yearly Code(s): D04.9 - Carcinoma in situ of skin, unspecified Plan: Currently being followed by [facility] in [place], has an appointment already scheduled in 4 months for follow-up Orders: Referrals [employer] Referral Z12.4 - Encounter for screening for malignant neoplasm of cervix Coding Level of Care Code Est Pt Prev Care 40-64y(41197) Diagnoses Annual visit for general adult medical examination with abnormal findings Z00. Screening for malignant neoplasm of cervix Z12.4 Obesity (BMI 35.0-39.9 without comorbidity) E66.9 Vitamin D deficiency E55.9 Basal cell carcinoma (BCC) in situ of skin D04.9
== END 2023-11-12 09:15 | disposition home or self-care (01) ==
PROVIDERS: Visit Provider Internal Medicine
DX: Z00.00 Encounter for general adult medical examination without abnormal findings (principal); E66.9 Obesity, unspecified; E55.9 Vitamin D deficiency, unspecified; D04.9 Carcinoma in situ of skin, unspecified; Z68.35 Body mass index [BMI] 35.0-35.9, adult
CPT/HCPCS: 99396

== ENCOUNTER 2024-01-20 11:29 | Outpatient (AMB) | payer OTHER, SELFPAY ==
[2024-01-20 11:45] VITALS: BP 140/84; PULSE 81; O2SAT 98; BMI 34.4
--- NOTE | 2024-01-20 11:45 | MHC.PC.OV ---
Vital Signs 01/20/24 11:45 Height 5 ft Weight 176 lb BMI 34.4 BP 140/84 H Blood Pressure Location Lt brachial Position Sitting Pulse 81 Pulse Source Pulse Oximeter Pulse Oximetry (%) 98 Oxygen Delivery Method Room Air Intake Visit Reasons: Weight check for Wegovy with Dr. Lackey Intake Note: Pt is here today for her weigh in Allergies Sulfa (Sulfonamide Antibiotics) Allergy (Unknown, Unverified 01/25/24 00:11) hives Tobacco use date assessed: 01/20/24 Dental Screening Dental Screen Date: 01/20/24 Did you have a dental visit in the last 12 months?: Yes Did you have a dental problem in the last 6 months where you did not have access to dental care?: No Was dental information given to patient?: Patient has dentist HPI Weight check for Wegovy with Dr. Lackey HPI Details 53-year-old lady here today for a follow-up regarding her weigh. She has been on Wegovy, now on 1.7 mg once a week. Patient however has not been on it for several weeks, due to supply shoes,. She has been combining it with healthy eating habits and has been exercising regularly now. Denies any adverse effects from taking the medication. [facility] Medical History Vitamin D deficiency Impaired fasting glucose Saline breast implant in situ Anxiety and depression Basal cell carcinoma (BCC) in situ of skin Obesity (BMI 35.0-39.9 without comorbidity) Surgical History History of tonsillectomy History of tubal ligation History of mastopexy Family History Unknown No problems noted. Other Adopted Asperger syndrome Social History Housing: Condominium Patient Tobacco Use Status: Never used Tobacco e-Cigarette/Vaping Use: Never Used Second Hand Smoke Exposure: No service: No Current occupational status: employed Cognitive needs: No Hearing needs: No Vision needs: Yes Questionnaire PHQ-9 Over the last 2 weeks, how often have you been bothered by any of the following problems? 1. Little interest or pleasure in doing things: not at all 2. Feeling down, depressed, or hopeless: not at all 3. Trouble falling or staying asleep, or sleeping too much: not at all 4. Feeling tired or having little energy: not at all 5. Poor appetite or overeating: not at all 6. Feeling bad about yourself - or that you are a failure or have let yourself or your family down: not at all 7. Trouble concentrating on things, such as reading the newspaper or watching television: not at all 8. Moving or speaking so slowly that other people could have noticed. Or the opposite - being so fidgety or restless that you have been moving around a lot more than usual: not at all 9. Thoughts that you would be better off or of hurting yourself in some way: not at all Total score: 0 Depression Screening Interpretation: Negative Depression Screening Done: Yes 40583 - PHQ-9 Billing: Yes Source: Developed by Drs. Gabe Mcclelland, Adriane Cloud, Lucius Lam and colleagues, with an educational hayder from [employer]. Thrive Questionnaire Date Thrive assessed: 01/20/24 I am a: Patient What is your living situation today?: I choose not to answer this question Within the past 12 months, did the food you bought not last and you didn't have the money to get more?: Never true Within the past 12 months, did you worry whether your food would run out before you got money to buy more?: Never true Do you have trouble paying for medicines?: No Do you have trouble getting transportation to medical appointments?: No Do you have trouble paying your heating and electricity bill?: No Do you have trouble taking care of your child, family member or friend?: No Do you have trouble with day-to-day activities such as bathing, preparing meals, shopping, managing finances, etc.?: No Are you currently unemployed and looking for a job?: No Are you interested in more education?: No Please select the resources that you would like help with: Housing/Skilled Nursing Currently or been in a relationship where the following occur: No concerns reported THRIVE Score: 0 AUDIT C Alcohol Use Questionnaire (AUDIT-C) 1. How often do you have a drink containing alcohol?: Monthly or less 2. How many drinks containing alcohol do you have on a typical day when you are drinking?: 1 or 2 3. How often do you have six or more drinks on one occasion?: Never Total Score: 1 ADILSON-7 AMB Questionnaire ADILSON-7 Date ADILSON - 7 assessed: 01/20/24 Feeling nervous, anxious, or on edge: 0 = Not at all Not being able to stop or control worryin = Not at all Worrying too much about different things: 0 = Not at all Trouble relaxin = Not at all Being so restless that it is hard to sit still: 0 = Not at all Becoming easily annoyed or irritable: 0 = Not at all Feeling afraid as if something awful might happen: 0 = Not at all Total ADILSON-7 score (0-4 normal; 5-9 mild; 10-14 moderate; 15-21 severe): 0 Source: Developed by Drs. Gabe Mcclelland, Adriane Cloud, Lucius Lam and colleagues, with an educational hayder from [employer]. ADILSON-7 Assessment Billing ADILSON-7 Assessment Tool: ADILSON-7 Assessment 95022 Review of Systems Const Reports no additional complaints Eyes Denies change in vision ENT Reports no additional complaints and Reports Normal hearing present Card Reports no additional complaints Resp Reports no additional complaints GI Reports no additional complaints Reports no additional complaints Musc Reports no additional complaints Skin/Breast Details: Currently sees [facility] for skin cancer screening recently had a basal cell cancer on her right forearm removed Neuro Reports no additional complaints, Reports Normal hearing present and Denies Sensory deficit (Neuro) Psych Reports no additional complaints Endo Reports no additional complaints Magdi/Lymph Reports no additional complaints Aller/Immun Reports no additional complaints Physical exam (Primary Care) Vital Signs: Last Vital Signs Pulse 81 01/20/24 11:45 BP 140/84 H 01/20/24 11:45 Pulse Ox 98 01/20/24 11:45 Oxygen Delivery Method Room Air 01/20/24 11:45 BMI result Body Mass Index 34.4 Tobacco/Smoking Status: Tobacco use Status Tobacco use date assessed 01/20/24 01/20/24 11:50 Patient Tobacco Use Status Never used Tobacco 01/20/24 11:50 e-Cigarette/Vaping Use Never Used 01/20/24 11:50 PHQ-9: PHQ-9 Score PHQ-9: Total score 0 01/20/24 12:14 Depression Screening Interpretation: Negative Thrive Assessment: Date of Thrive Assessment Date Thrive assessed 01/20/24 01/20/24 11:50 Currently or been in a relationship where the following occur: No concerns reported Const General: no acute distress and alert Nutritional Appearance: obese Orientation/consciousness: patient oriented x3 HENMT Head: Yes normocephalic Ears: hearing grossly normal bilaterally, external ears normal, TM's normal bilaterally and EAC's normal Eyes General: appearance normal, both eyes and all related structures Neck Neck: Yes full ROM and Yes no lymphadenopathy Thyroid: Thyroid normal Chest Other: Positive bilateral breast implant Resp Effort & Inspection: normal respiratory effort and able to speak in complete sentences Auscultation: clear to auscultation bilaterally Cardio Jugular venous distension: no JVD Rate: regular rate Rhythm: regular rhythm Heart sounds: S1 normal heart sound present and S2 normal heart sound present GI Inspection: Yes normal to inspection Palpation (GI): Soft to palpation Auscultation: normal bowel sounds Other: Referral to OBGYN General: Yes no CVA tenderness and Yes deferred Back/Spine/Pelvis Back: no CVA tenderness and No back tenderness Skin General skin exam: no rashes or lesions noted Neuro General: patient oriented x3, gait normal, moves all extremities, no focal motor deficits and CN's II-XI intact bilaterally Cranial nerves: Yes Normal hearing present Cognition (Neuro): normal cognition Gait exam (Neuro): Normal gait present Sensory Exam: No Sensory deficit (Neuro) Extrem General: Yes normal to inspection, Yes full ROM, Yes no joint enlargement, Yes no clubbing, cyanosis or edema and Yes no calf tenderness Psych Appearance: grossly normal and well kempt Mental Status: mental status grossly normal Speech and movement: Normal speech and movement present Affect: normal affect Assessment and Plan Assessment & Plan (1) Obesity (BMI 35.0-39.9 without comorbidity): Code(s): E66.9 - Obesity, unspecified Plan: Will continue on Wegovy, with dose increased now to 2.4 mg injected subcutaneously once a week, discuss again possible side effects of medication, date sides of injection, continued adherence to recommended diet and getting regular exercise is important in promoting weight loss (2) Vitamin D deficiency: Code(s): E55.9 - Vitamin D deficiency, unspecified Plan: Will check vitamin-D level (3) Constipation: Code(s): K59.00 - Constipation, unspecified Plan: Will check thyroid stimulating hormone and free T4 levels, could also be side effect of wegovy. Orders: Orders TSH reflex Free T4 04/17/24 E55.9 - Vitamin D deficiency, unspecified, E66.9 - Obesity, unspecified, K59.00 - Constipation, unspecified Vitamin D 25-OH Total 04/17/24 E55.9 - Vitamin D deficiency, unspecified, E66.9 - Obesity, unspecified, K59.00 - Constipation, unspecified Comprehensive [place]. Panel Fast 04/17/24 E55.9 - Vitamin D deficiency, unspecified, E66.9 - Obesity, unspecified, K59.00 - Constipation, unspecified Medications: New Wegovy (semaglutide (weight loss)) 2.4 mg (0.75 mL) subcut QWEEK 3 mL 3RF 30 days NS E66.9 - Obesity, unspecified Discontinued Wegovy (semaglutide (weight loss)) administer weeks 13 through 16 of therapy Discontinued Reason: Doctor's Order 1.7 mg (0.75 mL) subcut QWEEK 3 mL 0RF NS Coding Level of Care Code Est Pt Level 3 (08778) Diagnoses Obesity (BMI 35.0-39.9 without comorbidity) E66.9 Vitamin D deficiency E55.9 Constipation K59.00 Additional Codes ADILSON-7 Assessment Billing - ADILSON-7 Assessment Tool: ADILSON-7 Assessment 48288 ([id number])
== END 2024-01-20 12:16 | disposition home or self-care (01) ==
PROVIDERS: PCP Internal Medicine; Visit Provider Internal Medicine
DX: E66.9 Obesity, unspecified (principal); Z68.34 Body mass index [BMI] 34.0-34.9, adult; E55.9 Vitamin D deficiency, unspecified; K59.00 Constipation, unspecified
CPT/HCPCS: 99213

== ENCOUNTER 2024-05-28 08:28 | Outpatient (AMB) | payer OTHER, SELFPAY ==
--- NOTE | 2024-05-28 08:33 | MHC.OFFVIS ---
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 She is doing well with no concerns. Currently sexually active. Denies any vaginal dryness or irritation. STI testing offered; she declines. Attempting to eat a healthy diet with calcium and vitamin D and stays active with exercise. Last pap smear; 2020, normal history. Last mammogram; 2023. Colonoscopy is UTD. Pt. is adopted, no FH. [facility] Medical History Adopted Vitamin D deficiency Impaired fasting glucose Saline breast implant in situ Anxiety and depression Basal cell carcinoma (BCC) in situ of skin Obesity (BMI 35.0-39.9 without comorbidity) Surgical History History of tonsillectomy History of tubal ligation History of mastopexy Family History Unknown No problems noted. Other Adopted Asperger syndrome Social History Housing: Condominium Alcohol intake: current Alcohol intake frequency: holidays/special occasions only Patient Tobacco Use Status: Never used Tobacco e-Cigarette/Vaping Use: Never Used Second Hand Smoke Exposure: No service: No Current occupational status: employed Cognitive needs: No Hearing needs: No Vision needs: Yes Female Reproductive History Menstrual control method: permanent sterilization Permanent Sterilization: BTL Menopause type: natural Total pregnancies: 2 Full term: 2 Number of Living Children: 2 Date of last pap smear: 06/08/21 (neg pap and hpv) Date of Mammogram: 09/06/23 ([facility] 2) Review of Systems Const All systems reviewed & are unremarkable except as noted in HPI and below Reports as per HPI Eyes Reports no additional complaints ENT Reports no additional complaints Card Reports no additional complaints Resp Reports no additional complaints GI Reports as per HPI and Reports no additional complaints Reports as per HPI Musc Reports no additional complaints Skin/Breast Reports as per HPI Neuro Reports no additional complaints Psych Reports no additional complaints Endo Reports no additional complaints Magdi/Lymph Reports no additional complaints Aller/Immun Reports no additional complaints Physical Exam Vital Signs: Last Vital Signs BP 136/84 05/28/24 08:34 BMI result Body Mass Index 35.2 Const General: cooperative, healthy appearing, no acute distress, well developed and alert Orientation/consciousness: patient oriented x3 HEENT Head: Yes normal to inspection Eyes General: appearance normal, both eyes and all related structures Neck Neck: Yes normal visual inspection Thyroid: Thyroid normal Chest Other: Bilateral implants and reconstruction scars. Chest palpation & inspection: normal inspection of the chest and other (no puckering, dimpling, peau de orange, retraction, discharge, masses) Breast/axilla inspection: normal inspection of the breasts Breast/axilla palpation: normal palpation of the breasts Resp Effort & Inspection: normal respiratory effort GI Inspection: Yes normal to inspection and Yes scar Palpation (GI): Soft to palpation Rectal Exam - Female: deferred General: Yes bladder normal to palpation External Female Exam: normal external appearance and normal appearance of the urethra Speculum Exam - Vagina: normal appearance of the vagina, normal palpation and normal vaginal discharge Speculum Exam - Cervix: normal appearance of the cervix and normal palpation Bimanual exam- vagina & uterus: normal bimanual exam, normal palpation, uterine size normal, bladder normal to palpation, normal palpation and non-tender Bimanual Exam- Adnexa, other: no masses Skin General skin exam: no rashes or lesions noted Rashes: no rashes Neuro General: patient oriented x3 Cognition (Neuro): normal cognition Extrem General: Yes normal to inspection Psych Attitude: cooperative Thought process: Normal thought process present Assessment & Plan Assessment & Plan (1) Encounter for well woman exam with routine gynecological exam: Code(s): Z01.419 - Encounter for gynecological examination (general) (routine) without abnormal findings Category: Medical Plan Discussed: Current recommendations for pap smears per ASCCP guidelines. Pap due 2025. Breast awareness, periodic self breast exams and yearly mammogram. Maintain a healthy lifestyle, well balanced diet including Calcium 1,200 mg and Vitamin D 600 IU daily, and routine exercise. Contact the office with any postmenopausal bleeding. Patient verbalizes understanding and agrees to the plan of care. She was given opportunity to ask questions and all questions were answered to the best of my ability. RTO in 1 year for annual applications administrator exam. This note is constructed using voice recognition software. While every effort has been made to ensure accuracy, milk route deliverer errors may have been included. Coding Level of Care Code New Pt Prev Care 40-64y(28423) Diagnoses Encounter for well woman exam with routine gynecological exam Z01.419
[2024-05-28 08:34] VITALS: BP 136/84; BMI 35.2
== END 2024-05-28 09:00 | disposition home or self-care (01) ==
LOC: HO.HWS 08:28
PROVIDERS: PCP Internal Medicine; Visit Provider Advanced Practice Midwife
DX: Z01.419 Encounter for gynecological examination (general) (routine) without abnormal findings (principal)
CPT/HCPCS: 99386

== ENCOUNTER 2024-10-24 07:37 | Outpatient (REF) | payer OTHER, SELFPAY | END 2024-10-24 07:38 | disposition home or self-care (01) | LOC: HO.MAMMO 07:37 | PROVIDERS: PCP Internal Medicine; Visit Provider Internal Medicine | DX: Z12.31 Encounter for screening mammogram for malignant neoplasm of breast (principal) | CPT/HCPCS: 77063; 77067 ==

== ENCOUNTER → 2024-10-24 07:45 | Outpatient (BNV) | payer OTHER, SELFPAY | PROVIDERS: PCP Internal Medicine; Visit Provider Internal Medicine | DX: Z12.31 Encounter for screening mammogram for malignant neoplasm of breast (principal) | CPT/HCPCS: 77063; 77067 ==